=== PATIENT | female | born 1980 | race American Indian/Alaskan Native ===

== ENCOUNTER 2017-09-16 10:11 | Emergency (ER) | payer MEDICAID ==
[2017-09-16] MEDS: NORCO 5/325 PO ONE ×2 (11:58→12:02)
[2017-09-16] MEDS ORDERED: MOTRIN PO ONE (12:03)
--- NOTE | 2017-09-16 12:06 | XRay Report ---
Left tib-fib: Severe pain. There is mild edema of the soft tissues of the proximal leg. No foreign body no ulceration identified. The bony structures appear intact. Impressions: Nonspecific mild swelling.
--- NOTE | 2017-09-16 13:13 | Emergency Department Report ---
ED Lower Extremity HPI - General Chief Complaint: Pain General Stated Complaint: LEFT LEG PAIN Time Seen by Provider: 09/16/17 11:53 Source: patient Mode of arrival: Ambulatory Limitations: Physical Limitation - History of Present Illness Initial Comments: 36-year-old female past medical history it's of hernia, bipolar disorder, substance abuse presents with complaint of left leg pain since yesterday. Patient describes pain radiating from her left side knee down through her calf and into the lower leg region. She denies fevers or chills. States 3 weeks ago she had a slip and fall and may have sprained her left knee. Patient is ambulatory without assistance. Patient is awake alert and oriented 3. Patient has no personal history of PE or DVT. Denies any chest pain palpitation shortness of breath or pleuritic chest pain. Not on control. MD Complaint: leg injury Onset/Timin -: week(s) Injury: Knee: Left (and calf) Type of Injury: blunt Place: street/outdoors Severity: moderate Severity scale (0 -10): 6 Improves With: NSAID, cold therapy, immobilization Worsens With: palpation Context: fall Associated Symptoms: swelling, ambulatory Treatments Prior to Arrival: cold therapy, NSAIDS - Related Data Previous Rx's Medication Instructions Recorded Last Taken Type Ibuprofen [Motrin] 800 mg PO Q8HR PRN #20 tablet 09/16/17 Unknown Rx Lisinopril [Zestril] 10 mg PO QDAY #30 tablet 09/16/17 Unknown Rx Allergies Allergy/AdvReac Type Severity Reaction Status Date / Time No Known Allergies Allergy Unverified 09/16/17 10:51 ED Review of Systems ROS: Stated complaint: LEFT LEG PAIN Other details as noted in HPI Constitutional: denies: chills, fever Eyes: denies: eye pain, eye discharge, vision change ENT: denies: ear pain, throat pain Respiratory: denies: cough, shortness of breath, wheezing Cardiovascular: denies: chest pain, palpitations Endocrine: no symptoms reported Gastrointestinal: denies: abdominal pain, nausea, diarrhea Genitourinary: denies: urgency, dysuria, discharge Musculoskeletal: as per HPI, arthralgia. denies: back pain, joint swelling Skin: denies: rash, lesions Neurological: denies: headache, weakness, paresthesias Psychiatric: denies: anxiety, depression Hematological/Lymphatic: denies: easy bleeding, easy bruising ED Past Medical Hx - Social History Smoking Status: Current Every Day Smoker Substance Use Type: None - Medications Home Medications: Home Medications Medication Instructions Recorded Confirmed Last Taken Type Ibuprofen [Motrin] 800 mg PO Q8HR PRN #20 tablet 09/16/17 Unknown Rx Lisinopril [Zestril] 10 mg PO QDAY #30 tablet 09/16/17 Unknown Rx ED Physical Exam - General Limitations: Physical Limitation General appearance: alert, in no apparent distress - Head Head exam: Present: atraumatic, normocephalic - Eye Eye exam: Present: normal appearance, PERRL, EOMI Pupils: Present: normal accommodation - ENT ENT exam: Present: mucous membranes moist - Neck Neck exam: Present: normal inspection - Respiratory Respiratory exam: Present: normal lung sounds bilaterally. Absent: respiratory distress - Cardiovascular Cardiovascular Exam: Present: regular rate, normal rhythm. Absent: systolic murmur, diastolic murmur, rubs, gallop - GI/Abdominal GI/Abdominal exam: Present: soft, normal bowel sounds - Extremities Exam Extremities exam: Present: normal inspection - Expanded Lower Extremity Exam Left Upper Leg exam: Present: normal inspection, full ROM Knee exam: Present: normal inspection, full ROM Lower Leg exam: Present: normal inspection, full ROM Ankle exam: Present: normal inspection, full ROM Foot/Toe exam: Present: normal inspection (no clinical signs of cellulitis or abscess on exam, old scars), full ROM Neuro vascular tendon exam: Present: no vascular compromise (dorsalis pedis and posterior tibial pulses strong to palpation) Gait: Positive: observed and normal - Back Exam Back exam: Present: normal inspection - Neurological Exam Neurological exam: Present: alert, oriented X3, CN II-XII intact, normal gait - Psychiatric Psychiatric exam: Present: normal affect, normal mood - Skin Skin exam: Present: warm, dry, intact, normal color. Absent: rash ED Course Vital Signs 09/16/17 09/16/17 10:47 13:50 Temperature 98.4 F Pulse Rate 73 78 Blood Pressure 189/103 184/102 O2 Sat by Pulse 100 Oximetry ED Lower Extremity MDM - Medical Decision Making A/P: Left lower extremity pain, asymptomatic hypertension 1-duplex negative. X-ray shows soft tissue swelling but no fractures. No clinical signs of infection on examination of the leg. Neurovascular exam normal left lower extremity 2-follow-up outpatient primary care for hypertension. Patient states she has been out of her lisinopril for approximately one month. I provided her with prescription. Patient denies any chest pain palpitation shortness of breath nausea vomiting blurry vision and headache palpitations. 3- Motrin when necessary for left lower extremity pain. Outpatient orthopedics follow-up. Patient is ambulating without significant difficulty. Provided with left knee immobilizer and states that this is helping her significantly. Critical care attestation.: If time is entered above; I have spent that time in minutes in the direct care of this critically ill patient, excluding procedure time. ED Disposition Clinical Impression: Left leg pain, Asymptomatic hypertension Disposition: TO HOME OR SELFCARE Is pt being admited?: No Does the pt Need Aspirin: No Condition: Stable Instructions: Knee Pain (ED), Hypertension (ED), RICE Therapy (ED) Prescriptions: Ibuprofen [Motrin] 800 mg PO Q8HR PRN #20 tablet PRN Reason: Pain , Severe (7-10) Lisinopril [Zestril] 10 mg PO QDAY #30 tablet Referrals: [facility] [Outside] - 3-5 Days LALITA TEAGUE MD [Staff Physician] - 3-5 Days Forms: Work/School Release Form(ED) Time of Disposition: 13:29
[2017-09-16] MEDS ORDERED: ZESTRIL PO ONE (13:41)
[2017-09-16 13:51] VITALS: BP 184/102
--- NOTE | 2017-09-19 15:33 | Vascular Lab Report ---
Left Lower Extremity Venous Duplex Study: Reason for Exam: Pain and swelling of the left lower extremity. Comments on the Right: A limited duplex study was done of the proximal veins of the right lower extremity. All veins visualized are freely compressible without evidence of internal echogenicity. Flow is spontaneous and phasic throughout. No evidence of acute or chronic thrombus is seen in any of the vessels visualized. Comments on the Left: All veins visualized are freely compressible without evidence of internal echogenicity. Flow is spontaneous and phasic throughout. No evidence of acute or chronic thrombus is seen in any of the vessels visualized. Left inguinal adenopathy is noted. Impression: No evidence of acute or chronic deep venous thrombosis in the left lower extremity. Left inguinal adenopathy is noted.
== END 2017-09-16 14:06 | disposition home or self-care (01) ==
LOC: ED 10:11
DX: M79.605 Pain in left leg (principal); R03.0 Elevated blood-pressure reading, without diagnosis of hypertension; F17.200 Nicotine dependence, unspecified, uncomplicated; W01.0XXA Fall on same level from slipping, tripping and stumbling without subsequent striking against object, initial encounter; Y93.89 Activity, other specified; Y99.8 Other external cause status; Y92.488 Other paved roadways as the place of occurrence of the external cause

== ENCOUNTER 2017-09-22 02:19 | Emergency (ER) | payer MEDICAID ==
[2017-09-22] MEDS ORDERED: TYLENOL ONE ×2 (04:11→04:12)
[2017-09-22 04:12] VITALS: BP 125/87
[2017-09-22] MEDS ORDERED: TYLENOL PO ONE (04:17)
== END 2017-09-22 09:00 | disposition left against medical advice (07) ==
LOC: ED 02:19
DX: R51 Headache (principal); F17.200 Nicotine dependence, unspecified, uncomplicated; Z53.21 Procedure and treatment not carried out due to patient leaving prior to being seen by health care provider
CPT/HCPCS: 93005; 93010